=== PATIENT | male | born 1965 | race Caucasian/White ===

== ENCOUNTER 2017-12-06 05:42 | Emergency (ER) | payer BC ==
[~2017-12-06] VITALS: Ht 175.3 cm; Wt 98.1 kg
[~2017-12-06 05:42] MED LIST: LIDOCAINE700 MG TD; LIDODERM 5% P1 PATCH TD; NORCO 5/3251 TABLET PO; TOBREX5 ML RIGHT EYE
[2017-12-06 06:07] LABS: APPEARANCE CLEAR ((CLEAR)); BILIRUBIN NEGATIVE; BLOOD NEGATIVE; COLOR YELLOW ((YELLOW)); GLUCOSE (STRIP) NEGATIVE; KETONES NEGATIVE; LEUKOCYTES NEGATIVE; NITRITE NEGATIVE; PROTEIN (STRIP) NEGATIVE; UCUL ADDED? NO; UROBILINOGEN 0.2 MG/DL (0.2-1.0)
[2017-12-06 06:32] LABS: HEMATOCRIT 43.3 % (38.0-50.0); HEMOGLOBIN 15.3 G/DL (12.5-16.6); MCH 29.1 PG (29.0-34.0); MCHC 35.3 G/DL (30.0-36.0); MCV 82.3 FL (86-99); PLATELET COUNT 206 K/uL (156-360); RBC DIS.WIDTH-CV 13.2 % (11.8-14.6); RBC DIS.WIDTH-SD 39.3 % (39-53); RED BLOOD COUNT 5.26 M/uL (4.00-5.50); WHITE BLOOD COUNT 7.8 K/uL (4.1-10.2)
[2017-12-06 06:43] LABS: CHLORIDE 105 mEq/L (99-109); POTASSIUM 3.7 mEq/L (3.7-5.4); SODIUM 140 mEq/L (136-147)
[2017-12-06 06:45] LABS: GLUCOSE 123 mg/dL (70-99)
[2017-12-06 06:49] LABS: GFR ESTIMATE (CALCULATED) > 59 mL/min/ (58.99-99999)
[2017-12-06 06:50] LABS: UREA NITROGEN (BUN) 10 mg/dL (9-23)
[2017-12-06] MEDS ORDERED: PYRIDIUM200 MG PO (07:39)
[2017-12-06] MEDS ORDERED: TORADOL10 MG PO (07:39)
[2017-12-06 07:41] LABS: SOURCE URINE
[2017-12-06 08:01] VITALS: BP 141/103
[2017-12-06 11:30] LABS: CHLAMYDIA TRACHOMATIS NEGATIVE; NEISSERIA GONORRHOEAE NEGATIVE
== END 2017-12-06 08:26 | disposition home or self-care (01) ==
LOC: EME 05:42
DX: R30.0 Dysuria (principal); I10 Essential (primary) hypertension; Z88.0 Allergy status to penicillin
CPT/HCPCS: 74176; 80048; 81003; 85027; 87491; 87591; 99281; 99284; J1885